=== PATIENT | male | born 1965 | race Caucasian/White ===

== ENCOUNTER 2025-08-08 22:37 | Emergency (ER) | payer SELFPAY ==
[2025-08-08 22:38] VITALS: BP 153/108
[2025-08-08 23:02] VITALS: BP 133/78
[2025-08-08 23:22] VITALS: BMI 26.8
[2025-08-09] VITALS: BP 117/75
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
[2025-08-09] MEDS: TORADOL 30 MG IM (01:20)
[2025-08-09] MEDS: LIDOCAINE 4% PATCH 1 PATCH TOPICAL (01:23)
[2025-08-09 02:50] VITALS: BP 125/80
== END 2025-08-09 02:57 | disposition home or self-care (01) ==
LOC: EMR 22:37
PROVIDERS: EMERGENCY PHYSICIAN Student in an Organized Health Care Education/Training Program
DX: S23.3XXA Sprain of ligaments of thoracic spine, initial encounter (principal); V49.40XA Driver injured in collision with unspecified motor vehicles in traffic accident, initial encounter; Y92.414 Local residential or business street as the place of occurrence of the external cause; R03.0 Elevated blood-pressure reading, without diagnosis of hypertension
CPT/HCPCS: 99284; 96372; 72128; 72131

== ENCOUNTER 2025-08-31 22:12 | Emergency (ER) | payer OTHER, SELFPAY ==
[2025-08-31 22:17] VITALS: BP 154/88
[2025-08-31 22:57] VITALS: BMI 26.5
--- NOTE | 2025-09-01 02:22 | ED.MUSCINJ ---
HPI-Injury
General
Chief Complaint: Musculo-Skeletal Complaint
Source: patient and other
Exam Limitations: none
Time Seen by Provider: 09/01/25 00:00
Nursing documentation reviewed up to this point in time: agreed with
History of Present Illness-Injury
Initial Injury comments:
Note:
CHIEF COMPLAINT(S)
Right wrist pain and discomfort.
HISTORY OF PRESENT ILLNESS
The patient is a 60-year-old male who presented with a complaint of right wrist pain which was noted upon awakening this morning. The pain is described as severe and is localized in the wrist area, which appears slightly swollen. The patient denies
any recent trauma or injury to the wrist. 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 The patient expressed concern about the possibility of carpal tunnel syndrome, which was suggested by someone
previously, although he is reluctant to have this diagnosis. Upon examination, pain was noted in the area similar to symptoms of carpal tunnel syndrome. The patient reported two upcoming surgeries, one of which is on his foot. Additionally, the
patient mentioned waking up with a painful and deep fissure on his left heel but noted it is not bleeding or showing signs of infection. A similar painful lesion was also mentioned on his thumb.
PAST MEDICAL AND SURGICAL HISTORY
The patient mentioned having multiple surgeries scheduled, with an upcoming surgery on his foot.
PHYSICAL EXAM
General: Alert, no acute distress.
Skin: Warm, dry.
Head: Normocephalic, atraumatic.
Neck: Supple, trachea midline.
Eyes, ears, nose, mouth, and throat: Oral mucosa moist.
Cardiovascular: Normal peripheral perfusion, no edema.
Respiratory: Respirations are non-labored.
Gastrointestinal: Abdomen nondistended.
Back: Normal range of motion, normal alignment.
Musculoskeletal: Normal range of motion, normal strength in most areas, but tenderness in the right wrist.
Neurological: Alert and oriented to person, place, time, and situation, no focal neurological deficit observed.
Psychiatric: Cooperative, appropriate mood and affect.
PROBLEM LIST
Acute:
- Right wrist pain, likely carpal tunnel syndrome.
- Fissure on the left heel.
PLAN
- Splint the right wrist to alleviate symptoms of carpal tunnel syndrome and prevent further strain.
- Soak the left heel fissure in hydrogen peroxide, allow it to dry, and apply topical adhesive to promote healing.
- Provide the patient with information regarding an orthopedic surgeon for referral if symptoms persist or worsen.
DIFFERENTIAL DIAGNOSIS
The Differential Diagnosis includes, in no particular order and is not limited to:
- Carpal tunnel syndrome
- Tendonitis
- Arthritis
- Fracture (ruled out by normal X-ray)
- De Quervains tenosynovitis
- Gout
- Psoriatic arthritis
- Rheumatoid arthritis
- Trigger finger
- Repetitive strain injury
Disposition:
SUMMARY OF ENCOUNTER
The patient, a 60-year-old male, was seen for evaluation of severe right wrist pain consistent with symptoms of carpal tunnel syndrome. The patient also presented with a painful fissure on the left heel, noted to be in a callused area. In the
emergency department, the right wrist pain was alleviated using muscle distraction techniques. The heel fissure was thoroughly soaked, cleaned, and Germabond adhesive was applied for healing. The patient tolerated the procedure well and expressed a
preference to follow up with [facility].
DISPOSITION
Discharge.
ASSESSMENT
The visit addressed right wrist pain likely due to carpal tunnel syndrome and a fissure on the left heel.
PLAN
- Discharge with instructions to follow up with [facility] for the right wrist condition.
- Continue care at home for the heel fissure by keeping it clean and monitoring for signs of infection.
PATIENT EDUCATION AND COUNSELING
The patient was educated about the likely carpal tunnel syndrome and how to manage the wrist pain, including the use of splints if needed. Care instructions for the heel fissure were also provided.
FOLLOW-UP INSTRUCTIONS
The patient was instructed to follow up with [facility] for further evaluation and management of the wrist pain.
MEDICAL DECISION MAKING
- Complexity of Data Reviewed: Chronic conditions affecting care include the differential diagnosis for wrist pain, such as carpal tunnel syndrome, tendonitis, arthritis, fracture, De Quervains tenosynovitis, gout, psoriatic arthritis, rheumatoid
arthritis, trigger finger, and repetitive strain injury.
- Category 1: No additional labs or imaging was ordered.
- Category 3: The patient�s preference for follow-up with [facility] was noted, indicating a consideration of prior specialist involvement in management decisions.
- Risk: Given the typical presentation and management plan, the patient was considered appropriate for discharge with close follow-up and self-care instructions.
DIAGNOSIS
- Carpal Tunnel Syndrome (G56.0)
- Fissure of the Skin (L98.2)
Phy Exam
Physical Exam
Physical Exam:
.
*Pulse Oximetry
SaO2: 97
Oxygen Mode of Delivery: Room air
Patient hypoxic: no
*Critical Care Note
Total Time (30-74mins, 75-104mins- exclusive of procedures): Not Applicable
ED Attending Note
-
Portions of this chart may have been created with voice recognition software.� Occasional wrong word or��sound alike� substitutions may have occurred due to the inherent limitations of voice recognition software.
Discharge Plan
Departure
Patient Disposition: Home (Routine Discharge)
Date of Disposition: 09/01/25
Time of Disposition: 02:22
Patient with high blood pressure during this ER visit?: Yes
Condition: Good
Discharge Problem:
Acute wrist pain, Fissure in skin
Instructions: Carpal Tunnel Exercises, Overuse Injuries (DC), Skin glue for minor cuts, Splint care - ED (DC)
Prescriptions:
No Action
lidocaine 5 % adhesive patch,medicated
1 patch topical DAILY Qty: 15 0RF
Referrals:
Wallace Doss MD [Family Provider, Family Practice]
Rober Capps MD [Active, Orthopedics]
Stand Alone Forms: Return to Work
Activity Restrictions/Additional Instructions:
Patient was reexamined multiple times during this ER stay.
Reassessment demonstrates that they are in no acute distress. They remain nontoxic appearing. I Discussed all labs and radiology studies with them.
The pt is stable for discharge. Counseling is provided as documented below, discussed symptomatic treatment and specific conditions for return.
Pain was addressed to their satisfaction.
In addition to written instructions upon discharge, return precautions and followup instructions were extensively discussed with the patient. No further questions at this time. They verbally acknowledged understanding of these instructions without
any apparent barriers to learning.
When the patient was discharged from the ED, the patient was given specific instructions and information regarding their illness. The patient was verbally instructed to return to the ER urgently for any worsening symptoms OR failure of symptom
improvement over the next 12-24 hours and this was also written in the discharge instructions. In the patient's discharge instructions I told them to follow-up with their primary care provider in 1-2 days as well as to follow-up with any specialists
as necessary. If they did not have a primary care provider I gave them an alternate clinic to call and make an appointment (or [facility] to find a PCP). I also included diagnosis-specific educational material in their discharge paperwork.
Interventions
Interventions:
*Risk Screen - Suicide Last Done: 08/31/25 22:17
*General Assessment Last Done: 08/31/25 22:17
*Neglect/Abuse Screening Last Done: 08/31/25 22:17
*ED COVID-19 Vaccine History Last Done: 08/31/25 22:17
*ED Influenza Vaccine History Last Done: 08/31/25 22:17
[facility] Risk Assessment Tool Last Done: 08/31/25 22:57
*Nursing Disposition Last Done: 09/01/25 02:34
ED-Musculoskeletal Assessment Last Done: 09/01/25 01:11
Discharge Date and Time
Discharge Date/Time: 09/01/25 02:38
Print Language: ITALIAN
== END 2025-09-01 02:38 | disposition home or self-care (01) ==
LOC: EMR 22:12
PROVIDERS: EMERGENCY PHYSICIAN Student in an Organized Health Care Education/Training Program; FAMILY PHYSICIAN Family Medicine
DX: M25.531 Pain in right wrist (principal); R23.4 Changes in skin texture; G56.01 Carpal tunnel syndrome, right upper limb
CPT/HCPCS: 99283